=== PATIENT | male | born 1980 | race Caucasian/White ===

== ENCOUNTER 2017-06-28 18:28 | Emergency (ER) | payer BC ==
--- NOTE | 2017-06-28 19:08 | EDM.PDOC ---
ED HPI GENERAL MEDICAL PROBLEM - General Chief Complaint: Lower Extremity Injury/Pain Stated Complaint: PAIN LT ANKLE Time Seen by Provider: 06/28/17 19:08 Source of Information: Reports: Patient - History of Present Illness INITIAL COMMENTS - FREE TEXT/NARRATIVE: HISTORY AND PHYSICAL: History of present illness: [Patient with history of gout presents with left ankle pain although he did roll his ankle today as well he states he has had several flares over the last couple of days generally takes allopurinol however he has been out of this medication for a few weeks hence no need to stop allopurinol due to acute flare. He rates pain 6 out of 10 worse with ambulation No fever nausea vomiting chills sweats ] Review of systems: As per history of present illness and below otherwise all systems reviewed and negative. Past medical history: As per history of present illness and as reviewed below otherwise noncontributory. Surgical history: As per history of present illness and as reviewed below otherwise noncontributory. Social history: No reported history of drug or alcohol abuse. Family history: As per history of present illness and as reviewed below otherwise noncontributory. Physical exam: HEENT: Atraumatic, normocephalic, pupils reactive, negative for conjunctival pallor or scleral icterus, mucous membranes moist, throat clear, neck supple, nontender, trachea midline. Lungs: Clear to auscultation, breath sounds equal bilaterally, chest nontender. Heart: S1S2, regular, negative for clicks, rubs, or JVD. Abdomen: Soft, nondistended, nontender. Negative for masses or hepatosplenomegaly. Negative for costovertebral tenderness. Pelvis: Stable nontender. Genitourinary: Deferred. Rectal: Deferred. Extremities: Atraumatic, negative for cords or calf pain. Neurovascular unremarkable. Neuro: Awake, alert, oriented. Cranial nerves II through XII unremarkable. Cerebellum unremarkable. Motor and sensory unremarkable throughout. Exam nonfocal. Left lower extremity unaffected above the ankle there is some [id number] swelling slight red/pink color warm to touch no bruising entirely limb is neurovascularly intact Diagnostics: [CBC uric acid ] Therapeutics: []X-ray left foot complete CAM boot crutches nonweightbearing Indocin [place] Follow-up with orthopedist ER referral to evaluate tomorrow Impression: Medial malleoli fracture [Left ankle pain] History of gout Definitive disposition and diagnosis as appropriate pending reevaluation and review of above. left foot Pain Score (Numeric/FACES): 9 - Related Data Allergies Allergy/AdvReac Type Severity Reaction Status Date / Time No Known Allergies Allergy Verified 06/28/17 18:59 Home Meds: Home Meds Lisinopril 20 mg PO DAILY 03/16/17 [History] amLODIPine [Norvasc] 10 mg PO DAILY 03/16/17 [History] Past Medical History HEENT History: Reports: None Cardiovascular History: Reports: Hypertension Respiratory History: Reports: None Gastrointestinal History: Reports: None Genitourinary History: Reports: None Musculoskeletal History: Reports: Gout Neurological History: Reports: None Psychiatric History: Reports: None Endocrine/Metabolic History: Reports: None Dermatologic History: Reports: None - Infectious Disease History Infectious Disease History: Reports: Chicken Pox Social & Family History - Family History Family Medical History: Noncontributory - Tobacco Use Smoking Status *Q: Current Every Day Smoker Years of Tobacco use: 10 Packs/Tins Daily: 0.5 - Caffeine Use Caffeine Use: Reports: None - Recreational Drug Use Recreational Drug Use: No Review of Systems - Review of Systems Review Of Systems: ROS reveals no pertinent complaints other than HPI. ED EXAM, GENERAL - Physical Exam Exam: See Below Course - Vital Signs Last Recorded V/S: Last Vital Signs Temp 99 F 06/28/17 19:00 Pulse 104 H 06/28/17 19:00 Resp 18 06/28/17 19:00 BP 155/94 H 06/28/17 19:00 Pulse Ox 97 06/28/17 19:00 - Orders/Labs/Meds Orders: Active Orders 24 hr Category Date Time Status Ankle Min 3V Lt [CR] Stat Exams 06/28/17 19:23 Taken Labs: Laboratory Tests 06/28/17 06/28/17 Range/Units 19:15 19:15 WBC 10.79 (4.0-11.0) K/uL RBC 5.34 (4.50-5.90) M/uL Hgb 15.9 (13.0-17.0) g/dL Hct 45.9 (38.0-50.0) % MCV 86.0 (80.0-98.0) fL MCH 29.8 (27.0-32.0) pg MCHC 34.6 (31.0-37.0) g/dL RDW Std Deviation 41.2 (28.0-62.0) fl RDW Coeff of Armida 13 (11.0-15.0) % Plt Count 268 (150-400) K/uL MPV 11.60 (7.40-12.00) fL Neut % (Auto) 67.2 (48.0-80.0) % Lymph % (Auto) 18.9 (16.0-40.0) % [place] % (Auto) 10.4 (0.0-15.0) % Eos % (Auto) 3.2 (0.0-7.0) % Baso % (Auto) 0.3 (0.0-1.5) % Neut # (Auto) 7.3 H (1.4-5.7) K/uL Lymph # (Auto) 2.0 (0.6-2.4) K/uL [place] # (Auto) 1.1 H (0.0-0.8) K/uL Eos # (Auto) 0.4 (0.0-0.7) K/uL Baso # (Auto) 0.0 (0.0-0.1) K/uL Nucleated RBC % 0.0 /100WBC Nucleated RBCs # 0 K/uL Uric Acid 6.1 (2.6-7.2) mg/dL Departure - Departure Time of Disposition: 19:52 Disposition: Home, Self-Care 01 Condition: Good Clinical Impression: Closed malleolar fracture - Discharge Information Referrals: PCP,None [Primary Care Provider] - Forms: ED Department Discharge Additional Instructions: Medication as prescribed Return if symptoms persist or worsen Follow-up with orthopedist tomorrow ice 20 minute intervals 3 times daily Cam boot/crutches/nonweightbearing Orthopedist referral for evaluation tomorrow and redirect [facility] [address], [address] [place] [address] my orthopedic The following information is given to patients seen in the emergency department who are being discharged to home. This information is to outline your options for follow-up care. We provide all patients seen in our emergency department with a follow-up referral. The need for follow-up, as well as the timing and circumstances, are variable depending upon the specifics of your emergency department visit. If you don't have a primary care physician on staff, we will provide you with a referral. We always advise you to contact your personal physician following an emergency department visit to inform them of the circumstance of the visit and for follow-up with them and/or the need for any referrals to a consulting specialist. The emergency department will also refer you to a specialist when appropriate. This referral assures that you have the opportunity for follow-up care with a specialist. All of these measure are taken in an effort to provide you with optimal care, which includes your follow-up. Under all circumstances we always encourage you to contact your private physician who remains a resource for coordinating your care. When calling for follow-up care, please make the office aware that this follow-up is from your recent emergency room visit. If for any reason you are refused follow-up, please contact the [facility] emergency department at and asked to speak to the emergency department charge nurse. - My Orders Last 24 Hours: My Active Orders 06/28/17 19:23 Ankle Min 3V Lt [CR] Stat - Assessment/Plan Last 24 Hours: My Active Orders 06/28/17 19:23 Ankle Min 3V Lt [CR] Stat
--- NOTE | 2017-06-29 12:17 | CR ---
EXAM DATE: 06/28/17 PATIENT'S AGE: 37 Patient: BRENDA BELTRE Facility: [place], [place] Site . Site : 1980 Study: XRay Extremity Left ankle [id number] 7:41:19 PM Ordering Physician: Regine Trinidad Final Report: INDICATION: Gout, pain, swelling TECHNIQUE: Ankle radiograph 3 views left COMPARISON: None FINDINGS: Bones: A transverse fracture in the medial malleolus is present with the fracture margin is not well delineated. A prominent osteophyte is seen along the anterior dorsal aspect of the talus. 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 No significant ankle effusion is seen. Soft tissue: Moderate medial soft tissue swelling is noted. No radiopaque foreign bodies are seen. IMPRESSION: 1. A transverse fracture in the medial malleolus is present with the fracture margin is not well delineated. The age of this fracture is indeterminate. Dictated by Deon Rivas MD @ 06/28/2017 7:44:45 PM Dictated by: Deon Rivas MD @ 06/28/2017 19:44:47 (Electronic Signature) Report Signed by Proxy. SANDRA
== END 2017-06-28 20:05 | disposition home or self-care (01) ==
LOC: MW.ED 18:28
DX: S82.52XA Displaced fracture of medial malleolus of left tibia, initial encounter for closed fracture (principal); I10 Essential (primary) hypertension; F17.210 Nicotine dependence, cigarettes, uncomplicated; Z79.899 Other long term (current) drug therapy; X58.XXXA Exposure to other specified factors, initial encounter
CPT/HCPCS: 36415; 73610-26-LT; 73610-LT; 84550; 85025; 99283